=== PATIENT | female | born 1990 | race Caucasian/White ===

== ENCOUNTER 2016-09-30 16:19 | Emergency (ER) | payer OTHER ==
[~2016-09-30] VITALS: Ht 160 cm; Wt 56.7 kg
[2016-09-30 16:20] VITALS: BP_SYST 122
[2016-09-30] MEDS ORDERED: IBUPROFEN 800 MG TABLET PO ONE (17:00)
[2016-09-30 17:05] VITALS: BP_SYST 118
== END 2016-09-30 17:05 | disposition home or self-care (01) ==
LOC: SED 16:19
DX: Z04.1 Encounter for examination and observation following transport accident (principal); F41.9 Anxiety disorder, unspecified; V89.2XXA Person injured in unspecified motor-vehicle accident, traffic, initial encounter; Y93.89 Activity, other specified; Y99.8 Other external cause status; Y92.488 Other paved roadways as the place of occurrence of the external cause
CPT/HCPCS: 99283